=== PATIENT | female | born 1975 ===

== ENCOUNTER → 2020-03-13 15:27 | Outpatient (REF) | payer OTHER, SELFPAY | LOC: ANHLAB 15:27 | PROVIDERS: PCP Internal Medicine; Visit Provider Nurse Practitioner | DX: D22.72 Melanocytic nevi of left lower limb, including hip (principal) | CPT/HCPCS: 88305; 88342 ==

== ENCOUNTER → 2020-03-24 16:29 | Outpatient (REF) | payer OTHER, SELFPAY | LOC: ANHLAB 16:29 | PROVIDERS: PCP Internal Medicine; Visit Provider Nurse Practitioner | DX: D49.2 Neoplasm of unspecified behavior of bone, soft tissue, and skin (principal) | CPT/HCPCS: 88305 ==

== ENCOUNTER 2020-04-17 13:10 | Emergency (ER) | payer OTHER, SELFPAY ==
--- NOTE | ~2020-04-17 | CT_ITS ---
EXAMINATION: CT brain wo con EXAM DATE: 04/17/2020 16:21 INDICATION: Headache, nausea and vomiting. TECHNIQUE: Spiral CT of the head was performed without contrast. Axial, coronal and sagittal images were reviewed. The dose-length product (DLP) for this examination was 681.00 mGy-cm. The exposure w as tailored according to patient size, and iterative reconstruction (ASIR) was used as additional dos e reduction technique. Correlation is made to sinus CT 2014. FINDINGS: There is no acute intraparenchymal hemorrhage. No evidence of intraparenchymal brain mass lesion. No evidence of acute infarction. There is no mass effect or midline shift. The ventricles are normal in size. There are no extra-axial collections. There are no acute calvarial fractures. T he orbits are unremarkable. Soft tissue is unremarkable. There is moderate ethmoid, mild to moderat e sphenoid mucoperiosteal thickening. Mastoid air cells are well aerated. IMPRESSION: 1. No acute intracranial findings. 2. Ethmoid and sphenoid mucoperiosteal thickening. Reviewed, dictated and finalized at location A.
[2020-04-17 13:14] VITALS: BP 121/76; PULSE 80; RESP 18; TEMP 36.7; O2SAT 98
--- NOTE | 2020-04-17 13:27 | ECG_ITS ---
Measurements Intervals [place] Rate: 72 P: 49 [place]: 135 QRS: 11 QRSD: 81 T: 42 QT: 384 QTc: 420 Interpretive Statements SINUS RHYTHM BORDERLINE R WAVE PROGRESSION, ANTERIOR LEADS BORDERLINE ECG Electronically Signed On 04-17-2020 14:02:51 CDT by José Antonio Biswas D.O.
--- NOTE | 2020-04-17 13:27 | ED.DIZZY ---
HPI - Dizziness General Chief Complaint: Dizziness Stated Complaint: dizzy Time Seen by Provider: 04/17/20 13:14 Source: patient Mode of arrival: ambulatory Limitations: no limitations History of Present Illness HPI Narrative: This patient is a 44 year old female who presents for evaluation right ear pain and dizziness. Patient was evaluated by at Urgent care yesterday. She was diagnosed with cerumen impaction and otitis media. She states they irrigated her ear and discharged her with prescription for amoxicillin and prednisone. THis morning she developed nausea, vomiting and dizziness. She continues to have sharp pain behind her right ear and it occasionally radiates to right forehead. She denies focal weakness, numbness or tingling. She also denies any vision changes. MD elicited complaint: dizziness Related Data Home Medications Medication Instructions Recorded Confirmed triamcinolone acetonide 55 mcg 1 spray NASAL DAILY 03/13/20 nasal spray aerosol amoxicillin 04/17/20 04/17/20 prednisone 04/17/20 Allergies Allergy/AdvReac Type Severity Reaction Status Date / Time adhesive Allergy Mild RASH Verified 04/17/20 13:18 Aminoglycosides Allergy Mild unknown Verified 04/17/20 13:18 bacitracin Allergy Mild unknown Verified 04/17/20 13:18 ibuprofen Allergy Mild unknown Verified 04/17/20 13:18 neomycin Allergy Mild unknown Verified 04/17/20 13:18 POLYMYXINBSULF Allergy Mild unknown Uncoded 04/17/20 13:18 Review of Systems Review of Systems: All systems reviewed & are unremarkable except as noted in HPI and below Constitutional: Constitutional: Denies chills and Denies fever(s) Eyes: Eyes: Reports no additional eye complaints and Denies change in vision ENT: Reports as per HPI, Reports dizziness and Reports nasal congestion Cardiovascular: Cardiovascular: Denies chest pain Respiratory: Respiratory: Denies cough and Denies dyspnea Gastrointestinal: Gastrointestinal: Denies abdominal pain, Reports nausea and Reports vomiting Neurologic: Reports dizziness, Denies syncope, Reports headache(s), Denies focal weakness and Denies numbness PMFSH Past Medical History Medical History (Updated 04/17/20 @ 16:43 by Jaqueline Singer MD) Seasonal allergies Surgical History Surgical History (Updated 03/13/20 @ 15:10 by Ebonie Hardy) History of hernia repair Exam Narrative: Exam Narrative: GENERAL: well-nourished, and in no acute distress. HEAD: Normocephalic, atraumatic; mild tenderness right mastoid but no erythema, no swelling EYES: PERRLA and EOMI, conjunctiva clear without discharge NOSE: Nares clear, THROAT:Mucous membranes moist, Oropharynx normal without erythema, exudate, peritonsillar swelling or fluctuance NECK: Supple, without lymphadenopathy or mass RESPIRATORY: No respiratory distress, Airway patent, Respirations non-labored, Clear to auscultation without rales, rhonchi or wheeze HEART: Regular rate and rhythm. No murmur heard. Normal peripheral pulses. ABDOMEN: Soft, nontender, nondistended, normal active bowel sounds. No masses. No rebound or guarding, No organomegaly. EXTREMITIES: No edema, normal strength with full range of motion. SKIN: Warm, dry, normal color without rash NEURO: Alert and oriented x3. CN 2-12 grossly intact. No focal deficits. PSYCH: Normal mood and affect. HENMT: Ears: TM normal on the right and unable to visualize TM on the left (due to cerumen impaction) Course Reevaluation(s) Reevaluation #1: PAtient had CT brain performed due to severe right posterior head pain with dizziness, nausea and vomiting. I Discussed with patient and family that she is likely having symptoms do to sinus disease. She will continue antibiotics and add addition antihistamine and decongestants. She has been able to ambulate with out dizziness. Date: 04/17/20 Time: 16:40 Vital Signs Vital signs: Vital Signs Temperature 98.0 F 04/17/20 13:14 Pulse Rate 80 04/17
[2020-04-17 13:42] LABS: Basophils Absolute Auto 0.1 K/mm3 (0.0-0.1); Basophils Percent Auto 0.5 % (0.2-1.2); Eosinophils Percent Auto 0.1 % (0-4.4); Hematocrit 41.2 % (37.0-47.0); Hemoglobin 13.7 g/dL (12.0-15.0); Immature Granulocyte Absolute 0.07 K/mm3 (0.00-0.031); Immature Granulocyte Percent A 0.7 % (0-0.5); Lymphocytes Absolute Auto 0.69 K/mm3 (0.9-3.2); Lymphocytes Percent Auto 6.6 % (18.3-44.2); Mean Corpuscular HGB Conc 33.3 g/dl (32-36); Mean Corpuscular Hemoglobin 31.6 pg (26-34); Mean Corpuscular Volume 94.9 fl (80-100); Mean Platelet Volume 9.9 fl (7.4-10.4); Monocytes Absolute Auto 0.2 K/mm3 (0.1-0.6); Monocytes Percent Auto 1.7 % (2.6-8.5); Neutrophils Absolute Auto 9.5 K/mm3 (1.3-6.7); Neutrophils Percent Auto 90.4 % (45.5-73.1); Platelet Count Result 289 k/mm3 (150-375); Red Blood Count 4.34 M/mm3 (4.2-5.4); Red Cell Distribution Width 11.9 % (11.5-14.5); White Blood Count 10.5 K/mm3 (4.5-10.0)
[2020-04-17] MEDS: MECLIZINE HCL 25 MG TABLET PO (13:45)
[2020-04-17] MEDS: ONDANSETRON INJ 4 MG/2 ML VIAL IV PUSH (13:45)
[2020-04-17] MEDS: LACTATED RINGERS 1,000 ML 999 ML IV CONT (13:45)
[2020-04-17 13:54] LABS: Alanine Aminotransferase 16 U/L (4-35); Albumin Level 4.9 g/dL (3.5-5.1); Alkaline Phosphatase 55 U/L (38-126); Anion Gap 11 mmol/L (8-16); Aspartate Amino Transferase 24 U/L (14-36); Bilirubin,Total 0.4 mg/dL (0.2-1.3); Blood Urea Nitrogen 8 mg/dL (7-17); Calcium 9.6 mg/dL (8.4-10.2); Carbon Dioxide 23 mmol/L (22-30); Chloride 101 mmol/L (98-107); Estimated CRCL calculation 92 ml/min; Estimated Glomerular Filt Rate > 60; Glucose 131 mg/dL (65-105); Potassium 3.5 mmol/L (3.4-5.0); Sodium 135 mmol/L (137-145)
--- NOTE | 2020-04-17 15:17 | PC.NURSE ---
pt ambulated in halls w/o difficulty, denies dizziness/nausea.
[2020-04-17 17:10] VITALS: BP 113/71; PULSE 64; RESP 16; O2SAT 98
== END 2020-04-17 17:12 | disposition home or self-care (01) ==
PROVIDERS: Emergency Provider General Practice; PCP Internal Medicine
DX: R42 Dizziness and giddiness (principal); R11.2 Nausea with vomiting, unspecified
CPT/HCPCS: 36415; 70450; 80053; 85025; 93005; 96361; 96365; 96375; 99284; A9270; J0131; J2405; J7120